=== PATIENT | male | born 1960 | race African-American/Black ===

== ENCOUNTER 2016-12-21 11:57 | Outpatient (CLI) | payer MEDICARE ==
--- NOTE | 2016-12-21 12:31 | RAD ---
LEFT SHOULDER THREE VIEWS: History: Pain. Cow stepped on him about a month ago. Comparison: None. FINDINGS: The distal clavicle is somewhat high riding with respect to the acromion. Correlate for AC joint se paration, likely grade I. The glenohumeral joint space is preserved. No fracture or dislocation. IMPRESSION: Possible Grade I AC joint separation. POS: [facility]
== END 2016-12-21 11:58 | disposition home or self-care (01) ==
LOC: MADRAD 11:57
PROVIDERS: ATTEND Orthopaedic Surgery Sports Medicine
DX: M25.512 Pain in left shoulder (principal)